=== PATIENT | male | born 1940 | race Caucasian/White ===

== ENCOUNTER 2017-12-14 13:11 | Emergency (ER) | payer OTHER ==
[~2017-12-14] VITALS: Ht 177.8 cm; Wt 72.6 kg
[2017-12-14 13:56] LABS: ABSOLUTE BASOPHIL COUNT 0 /CUMM (0.0-0.2); ABSOLUTE EOSINOPHIL COUNT 0.5 /CUMM (0.0-0.7); ABSOLUTE GRANULOCYTE CT 5.3 /CUMM (1.4-6.5); ABSOLUTE LYMPH COUNT 1.4 /CUMM (1.2-3.4); ABSOLUTE MONOCYTE COUNT 0.7 /CUMM (0.10-0.60); BASOPHIL % 0.6 % (0.0-2.0); EOSINOPHIL % 6.6 % (0-5); GRANULOCYTE % 66.1 % (42.2-75.2); HEMATOCRIT 44.3 % (42-52); MEAN CORPUSCULAR HGB 31.7 PG (27.0-31.0); MEAN CORPUSCULAR HGB CONC 33.4 G/DL (33.0-37.0); MEAN PLATELET VOLUME 8.6 FL (7.4-10.4); PLATELET COUNT 211 /CUMM (130-400); RBC DISTRIBUTION WIDTH 13.6 % (11.5-14.5); RED BLOOD CELL CT 4.66 /CUMM (4.70-6.10); WHITE BLOOD CELL COUNT 8.1 /CUMM (4.8-10.8)
--- NOTE | 2017-12-14 14:04 | ED NECK/BACK PAIN COMPLAINT ---
History of Present Illness General Chief Complaint: Headache Stated Complaint: SEVERE HEADACHE Source: patient Exam Limitations: no limitations Vital Signs & Intake/Output Vital Signs & Intake/Output Vital Signs Date Time Temp Pulse Resp B/P B/P Pulse O2 O2 Flow FiO2 Mean Ox Delivery Rate 12/14 1519 98.9 74 18 168/82 94 Room Air 12/14 1505 98 Room Air 12/14 1318 97.5 67 18 174/80 98 Room Air Allergies Coded Allergies: No Known Allergies (12/14/17) Triage Note: PT FROM HOME C/O RIGHT SIDED NECK PAIN WHEN PT TURNS HIS HEAD TO THE RIGHT. PT STATES WHEN HE DOES NOT MOVE THE PAIN IS 0, Triage Nurses Notes Reviewed? yes Onset: Abrupt Duration: day(s):, constant Timing: recent history Quality/Severity: moderate, severe Location: C-spine Method of Injury: unknown HPI: 77yo male with history of TIAs and UC c/o of R sided neck pain that is radiating up to the base of the head. The pain has been progressively worsening over the last week and has become unbearable today. Pain is worse with movement. Pt tried cervical collar/padding today, which only intensified the pain and prompted ED visit. Also c/o of associated headache. Denies any trauma or falls. Denies numbness, tingling, confusion, visual changes. Denies any fevers, chills, nausea ,vomiting. Denies any weakness in his upper arms or hands. He denies any chest pain or shortness of breath. The pain is worse with any type of movement or when he presses on it. (Janusz Fierro) Reconcile Medications Ascorbic Acid (Vitamin C) (Unknown Strength) TABLET (Unknown Dose) PO DAILY SUPPLEMENT (Reported) Aspirin (Ecotrin*) 81 MG TABLET. 1 TAB PO Q3D HEART/BLOOD (Reported) Diazepam (Valium) 5 MG TABLET 0.5-1 TAB PO BIDP PRN spasms Diazepam (Valium) 5 MG TABLET 0.5-1 TAB PO TIDPRN spasms Garlic 1 EACH TABLET 1 TAB PO DAILY SUPPLEMENT (Reported) Mesalamine (Lialda) 1.2 GRAM TABLET.DR 2 TAB PO DAILY UC (Reported) Multiple Vitamin (Multivitamins) 1 EACH TABLET 1 TAB PO DAILY SUPPLEMENT ( Reported) [place]-3/Dha/Epa/Fish Oil (Fish Oil 1,000 MG Softgel) (Unknown Strength) CAPSULE (Unknown Dose) PO DAILY SUPPLEMENT (Reported) Oxycodone HCl/Acetaminophen (Percocet 5-325 MG Tablet) 5 MG-325 MG TABLET 0.5- 1 TAB PO Q6P PRN pain Oxycodone HCl/Acetaminophen (Percocet 5-325 MG Tablet) 5 MG-325 MG TABLET 0.5- 1 TAB PO Q6P PRN pain (Frida SANCHEZ,[facility]) Past History Travel History Traveled to [place] past 21 day No Medical History Any Pertinent Medical History? see below for history Neurological: TIA EENT: NONE Cardiovascular: NONE Respiratory: NONE Gastrointestinal: ulcerative colitis Hepatic: NONE Renal: NONE Musculoskeletal: NONE Psychiatric: NONE Endocrine: NONE Surgical History Surgical History: non-contributory Psychosocial History What is your primary language Croatian Tobacco Use: Quit >30 days ago Family History Hx Contributory? No (Janusz Fierro) Review of Systems Review of Systems Constitutional: Reports: see HPI. Eyes: Denies: no symptoms. Ears, Nose, Throat, Mouth: Reports: no symptoms. Respiratory: Reports: no symptoms. Cardiovascular: Denies: no symptoms. Gastrointestinal/Abdominal: Denies: no symptoms. Musculoskeletal: Reports: see HPI, neck pain. Skin: Reports: no symptoms. Neurological/Psychological: Reports: see HPI. All Other Systems: Reviewed and Negative (Janusz Fierro) Physical Exam Physical Exam General Appearance: well developed/nourished, no apparent distress, alert, awake Head: atraumatic, normal appearance Eyes: Bilateral: normal appearance, PERRL, EOMI. Ears, Nose, Throat, Mouth: hearing grossly normal Neck: supple, limited range of motion, pain, tenderness, R lateral neck: CN II- XII intact pain to the R lateral neck with neck/shoulder ROM Tenderness to palpation of R lateral neck Respiratory: normal breath sounds, chest non-tender, no respiratory distress Cardiovascular: regular rate/rhythm Gastrointestinal: soft, non-tender Back: normal inspection Extremities: non-tender Neurologic/Psych: awake, alert Skin: intact, normal color Diagram Body: 1) Core Measures CVA/TIA Diagnosis: No (Janusz Fierro) Progress Differential Diagnosis: herniated disc, myofascial strain, torticollis muscle spasm Plan of Care: Orders Procedure Date/time Status EKG 07/29 133 Active TROPONIN LEVEL 12/14 132 Complete COMPREHENSIVE METABOLIC PANEL 12/14 132 Complete CBC WITHOUT DIFFERENTIAL 12/14 1321 Complete Laboratory Tests 12/14/17 1331: Anion Gap 9, Estimated GFR > 60, BUN/Creatinine Ratio 17.0, Glucose 127 H, Calcium 9.0, Total Bilirubin 0.6, AST 22, ALT 24, Alkaline Phosphatase 70, Troponin I < 0.01, Total Protein 7.2, Albumin 3.9, Globulin 3.3, Albumin/ Globulin Ratio 1.2, CBC w Diff NO MAN DIFF REQ, RBC 4.66 L, MCV 95.0 H, MCH 31.7 H, MCHC 33.4, RDW 13.6, MPV 8.6, Gran % 66.1, Lymphocytes % 17.5 L, Monocytes % 9.2, Eosinophils % 6.6 H, Basophils % 0.6, Absolute Granulocytes 5.3, Absolute Lymphocytes 1.4, Absolute Monocytes 0.7 H, Absolute Eosinophils 0.5, Absolute Basophils 0 Diagnostic Imaging: Viewed by Me: CT Scan. Discussed w/RAD: CT Scan. Radiology Impression: PATIENT: MARTHA HOLLIDAY PRESENT AGE: 77 PATIENT ACCOUNT NO: [id number] : 39 LOCATION: [facility] ORDERING PHYSICIAN: Janusz RILEY SERVICE DATE: 12/14/17 EXAM TYPE : CAT - CT CERV SPINE WO IV CONTRAST; CT HEAD WO IV CONTRAST EXAMINATION: CT HEAD WITHOUT CONTRAST CLINICAL INFORMATION: Intracranial hemorrhage or mass. Severe headache. Right-sided neck pain with limited range of motion. COMPARISON: 02/01/2017, 03/27/2009 CT head. TECHNIQUE: Contiguous axial imaging was performed from the skull base to vertex without intravenous administration of contrast. DLP: 1005.31 mGy-cm. FINDINGS: No evidence of acute intracranial hemorrhage or extra-axial fluid collection. No evidence of mass lesion, mass effect or midline shift. Periventricular or white matter hypodensities, similar to the prior study and most commonly on the basis of chronic small vessel ischemic disease. No evidence of acute territorial infarction. The ventricles are enlarged and there is sulcal dilatation consistent with volume loss. The calvarium is intact. Limited views of the paranasal sinuses are unremarkable. Mastoid air cells are well aerated and middle ear cavities are clear. IMPRESSION : 1. No evidence of acute intracranial abnormality. 2. Volume loss. 3. Chronic small vessel ischemic disease. EXAMINATION: CT CERVICAL SPINE WITHOUT CONTRAST CLINICAL INFORMATION: Right neck pain. Limited range of motion. COMPARISON: None. TECHNIQUE: Axial images of the cervical spine were performed with sagittal and coronal reconstructions obtained on the technologist workstation. DLP: 1005.31 mGy-cm. FINDINGS: Straightening of cervical lordosis. Severe degenerative changes C5-C6 with disc space obliteration and osseous bridging of the C5 and C6 vertebral bodies. Severe degenerative disc disease C4-C5 and C6-C7. Multilevel neural foraminal stenoses are present, worst on the left at C5-C6 and C6-C7, worse on the right at C4-C5, C6-C7. Uncovertebral spurring throughout the cervical spine. Uncovertebral bony spurring. The vertebral bodies maintain height and alignment. The atlantodens interval is within normal limits. The facet joints are anatomically aligned bilaterally. Spinous processes are well aligned. The craniocervical junction is unremarkable. Limited views of the lung apices are unremarkable. Limited views of the thyroid gland are unremarkable. No evidence of cervical lymphadenopathy. IMPRESSION: 1. No radiographic evidence of acute fracture or subluxation. 2. Advanced degenerative changes, worst at the C5-C6 level. DICTATED BY: Kacy Mccauley MD DATE/TIME DICTATED:12/14/171542 SENIOR CONSUMER INSIGHTS CONSULTANT:QUINTIN DATE/TIME TRANSCRIBED:12/14/171542 CONFIDENTIAL, DO NOT COPY WITHOUT APPROPRIATE AUTHORIZATION. <Electronically signed in Other Vendor System> SIGNED BY: Kacy Mccauley MD 12/14/17 [id number] (Janusz Fierro) Departure Departure Disposition: HOME OR SELF CARE Condition: Stable Clinical Impression Primary Impression: Cervical paraspinal muscle spasm Referrals: Susannah SANCHEZ,Guilherme Castaneda (PCP/Family) Additional Instructions: Take Percocet and Valium as needed for pain. Follow-up with physical therapy. Return if any concerns worsening symptoms. Please go over all results of today's visit with your primary care doctor. Contact your primary care doctor to let them know you were here in the emergency room. There may be nonspecific findings which may not be related to your visit today here in the emergency room but may require further evaluation and chronic monitoring by your primary care doctor. If you had a laceration today the chance of foreign body always remains. You should follow-up with your primary care doctor for recheck in 3-5 days for a wound check. If you had an x-ray done there is a chance that a fracture could have been missed on initial read and you should follow-up with your primary care doctor for repeat x-rays if symptoms persist. If your blood pressure was elevated here in the emergency room please have rechecked by [facility] primary care doctor within the next 48. If you were prescribed a narcotic here in the emergency room or any type of controlled substances you're not allowed to drive while taking this medication or operate any type of heavy machinery. Narcotics can make you feel lightheaded dizziness nausea and can cause constipation. You may need to pick pack worker a stool softener. Thank you for choosing [facility] emergency room. Please return to the emergency room immediately if you have any other concerns worsening of symptoms. Departure Forms: Customer Survey General Discharge Information Comments 12/14/2017 5:14:34 PM Pain is reproducible and worse with range of motion. No suspicion for carotid artery dissection. Patient was seen and evaluated by Dr. DARLING. Return if any concerns worsening symptoms. Patient understands and agrees a plan of care. Reevaluated multiple times. Pain in neck improved. Patient had some mild nausea secondary to narcotics but feels ready and safe for discharge. Family is here at bedside and taking the patient home with them. (Janusz Fierro) Departure Prescriptions: Current Visit Scripts Oxycodone HCl/Acetaminophen (Percocet 5-325 MG Tablet) 0.5-1 TAB PO Q6P PRN pain #15 TAB Diazepam (Valium) 0.5-1 TAB PO BIDP PRN spasms #15 TAB Diazepam (Valium) 0.5-1 TAB PO TIDPRN #15 TAB Oxycodone HCl/Acetaminophen (Percocet 5-325 MG Tablet) 0.5-1 TAB PO Q6P PRN pain #15 TAB PA/BILL OF MATERIALS CLERK Co-Sign Statement Statement: ED Attending supervision documentation- [x] I saw and evaluated the patient. I have also reviewed all the pertinent lab results and diagnostic results. I agree with the findings and the plan of care as documented in the PA's/BILL OF MATERIALS CLERK's documentation. [] I have reviewed the ED Record and agree with the PA's/BILL OF MATERIALS CLERK's documentation. [] Additions or exceptions (if any) to the PAs/BILL OF MATERIALS CLERK's note and plan are summarized below: 77-year-old male presents with pain to the neck. Progressive pain over 1 week. Nonexertional pain. No chest pain or shortness of breath. Reproducible pain. Tenderness at the right side. Negative workup. Reproducible pain, clearly musculoskeletal. Consistent with torticollis. Patient had nausea and vomiting after the pain medicine. No signs of dissection, stroke, normal neurovascular exam. No signs of life- threatening pathology. Plan: Pain control and outpatient follow-up with PCP. (Frida SANCHEZ,[facility])
[2017-12-14] MEDS ORDERED: LIALDA1.2 G1 PO (14:08)
[2017-12-14] MEDS ORDERED: FISH OIL 1,0001 EAC2 PO (14:09)
[2017-12-14] MEDS ORDERED: GARLIC1 EAC1 PO (14:09)
[2017-12-14] MEDS ORDERED: VITAMIN C500 M8 PO (14:09)
[2017-12-14] MEDS ORDERED: MULTIVITAMINS1 EAC9 PO (14:09)
[2017-12-14] MEDS ORDERED: ASPIRIN EC81 M1 PO (14:10)
--- NOTE | 2017-12-14 16:27 | CT SCAN REPORT ---
EXAMINATION: CT HEAD WITHOUT CONTRAST CLINICAL INFORMATION: Intracranial hemorrhage or mass. Severe headache. Right-sided neck pain with limited range of motion. COMPARISON: 02/01/2017, 03/27/2009 CT head. TECHNIQUE: Contiguous axial imaging was performed from the skull base to vertex without intravenous administration of contrast. DLP: 1005.31 mGy-cm. FINDINGS: No evidence of acute intracranial hemorrhage or extra-axial fluid collection. No evidence of mass lesion, mass effect or midline shift. Periventricular or white matter hypodensities, similar to the prior study and most commonly on the basis of chronic small vessel ischemic disease. No evidence of acute territorial infarction. The ventricles are enlarged and there is sulcal dilatation consistent with volume loss. The calvarium is intact. Limited views of the paranasal sinuses are unremarkable. Mastoid air cells are well aerated and middle ear cavities are clear. IMPRESSION: 1. No evidence of acute intracranial abnormality. 2. Volume loss. 3. Chronic small vessel ischemic disease. EXAMINATION: CT CERVICAL SPINE WITHOUT CONTRAST CLINICAL INFORMATION: Right neck pain. Limited range of motion. COMPARISON: None. TECHNIQUE: Axial images of the cervical spine were performed with sagittal and coronal reconstructions obtained on the technologist workstation. DLP: 1005.31 mGy-cm. FINDINGS: Straightening of cervical lordosis. Severe degenerative changes C5-C6 with disc space obliteration and osseous bridging of the C5 and C6 vertebral bodies. Severe degenerative disc disease C4-C5 and C6-C7. Multilevel neural foraminal stenoses are present, worst on the left at C5-C6 and C6-C7, worse on the right at C4-C5, C6-C7. Uncovertebral spurring throughout the cervical spine. Uncovertebral bony spurring. The vertebral bodies maintain height and alignment. The atlantodens interval is within normal limits. The facet joints are anatomically aligned bilaterally. Spinous processes are well aligned. The craniocervical junction is unremarkable. Limited views of the lung apices are unremarkable. Limited views of the thyroid gland are unremarkable. No evidence of cervical lymphadenopathy. IMPRESSION: 1. No radiographic evidence of acute fracture or subluxation. 2. Advanced degenerative changes, worst at the C5-C6 level.
[2017-12-14] MEDS ORDERED: VALIUM5 M2 PO ×2 (16:53→17:37)
[2017-12-14] MEDS ORDERED: PERCOCET 5-3251 EACH PO ×2 (16:53→17:37)
[2017-12-14 17:50] VITALS: BP 143/72
== END 2017-12-14 18:07 ==
LOC: ERH 13:11
PROVIDERS: Physician Assistant Medical
DX: M62.830 Muscle spasm of back (principal)
CPT/HCPCS: 93005; 93010; 96374; 96375; J0131; J2405